=== PATIENT | female | born 1990 | race Caucasian/White ===

== ENCOUNTER → 2017-05-25 | Outpatient (CLI) | payer BC, OTHER ==
[~2017-05-25] MED LIST: MTR600X PO; PRENTAB26 PO
[2017-05-25 11:08] LABS: CHOLESTEROL/HDL RATIO 3.6
== END | disposition home or self-care (01) ==
LOC: C.LABBC 08:41
PROVIDERS: ATTEND Family Medicine
DX: Z00.00 Encounter for general adult medical examination without abnormal findings (principal)

== ENCOUNTER → 2017-06-07 | Outpatient (CLI) | payer OTHER ==
[2017-06-07 17:41] LABS: URINE APPEARANCE CLEAR (CLEAR); URINE BILIRUBIN NEG (NEG); URINE COLOR YELLOW; URINE NITRITE NEG (NEG); URINE PH 7.5 (4.5-7.5); URINE SPECIFIC GRAVITY 1.013 (1.000-1.030); UROBILINOGEN NEG (NEG)
[2017-06-07 17:42] LABS: MANUAL MICROSCOPIC REQUIRED? NO; REVIEW REQ? NO
== END | disposition home or self-care (01) ==
LOC: C.LABSPEC 14:35
PROVIDERS: ATTEND Family Medicine
DX: R30.0 Dysuria (principal)

== ENCOUNTER 2018-01-26 14:43 | Emergency (ER) | payer OTHER ==
[~2018-01-26] VITALS: Ht 172.7 cm; Wt 100.7 kg
[2018-01-26 14:49] VITALS: TEMP 36.9; O2SAT 98; Ht 172.7 cm; Wt 100.7 kg
[2018-01-26] MEDS ORDERED: ETON1IMP2 INTRAD (15:37)
[2018-01-26] MEDS ORDERED: SULF47LI PO (15:37)
[2018-01-26] MEDS ORDERED: MULT-513 PO (15:37)
[2018-01-26] MEDS ORDERED: MISCCAP80 PO (15:37)
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
[2018-01-26 16:21] VITALS: BP 120/80; PULSE 72
[2018-01-26] MEDS ORDERED: CYCL10TA6 PO (16:23)
== END 2018-01-26 16:54 | disposition home or self-care (01) ==
LOC: C.EDB 14:44 → C.EDD 16:54
DX: M54.9 Dorsalgia, unspecified (principal); M25.561 Pain in right knee; M25.562 Pain in left knee; S60.511A Abrasion of right hand, initial encounter; Z79.899 Other long term (current) drug therapy; Z97.8 Presence of other specified devices; V43.52XA Car driver injured in collision with other type car in traffic accident, initial encounter

== ENCOUNTER 2023-02-23 08:43 | Inpatient (IN) ==
[2023-02-23] MEDS ORDERED: OXYTOCIN 30 UNITS/500 ML BAG IV PRN ×2 (13:11→13:29)
[2023-02-23] MEDS ORDERED: LIDOCAINE 1% LOCAL 20 ML VIAL INFIL PRN (13:11)
[2023-02-23] MEDS: LACTATED RINGER'S 1,000 ML IV PRN ×3 (13:15→23:25)
[2023-02-23] MEDS ORDERED: ceFAZolin 2000MG 2,000 MG/15 ML SYR IV STA (13:17)
--- NOTE | 2023-02-23 13:28 | History & Physical Report ---
Date of Service February 23, 2023 Assessment & Plan (1) GBS (group B Streptococcus carrier), +RV culture, currently : (2) Encounter for supervision of normal in multigravida: (3) Term : Plan 32-year-old currently at 40 weeks 2 days gestational age presents for elective induction of labor. 1. Fetus: Cat 1 2. Labor: Pitocin. Will AROM when able 3. GBS positive - Ancef 4. Vitals: WNL Admission and Anticipated Discharge Date Admission Date: February 23, 2023 History of Present Illness Primary Care Provider: Frances Segura MD Ayah is a 32-year-old at 40 weeks 2 days gestational age presents for elective induction of labor. complicated by GBS positive. OB Labs: Blood Type O Positive 08/15/22 Antibody Screen NEGATIVE 08/15/22 Hemoglobin 11.5 g/dl (12.0-16.0) L 12/04/22 Hematocrit 32.8 % (37.0-47.0) L 12/04/22 Mean Corpuscular Volume 88.7 fL (80.0-100.0) 08/15/22 Platelet Count 241 K/uL (130-400) 08/15/22 Varicella-Zoster IgG Antibody 327.00 Index (>=165.00) 01/18/23 Rubella IgG Antibody Equivocal (Immune) L 08/15/22 Rapid Plasma Reagin Nonreactive (Nonreactive) 08/15/22 Hepatitis B Surface Antigen. NON-REACTIVE (NON-REACTIVE) 08/15/22 Hepatitis C Antibody (EIA) NON-REACTIVE (NON-REACTIVE) 08/15/22 HIV (1&2) Ag and Ab Confirmation NON-REACTIVE (NON-REACTIVE) 08/15/22 Glucose 1 Hour 50 gm Load 140 mg/dl (70-130) H 12/04/22 OB Optional Labs: Chlamydia trachomatis RNA Not Detected (NotDetected) 08/15/22 Neisseria gonorrhoeae RNA Not Detected (NotDetected) 08/15/22 Thyroid Stimulating Hormone (TSH) 2.210 uIU/mL (0.30-4.50) 01/25/22 Allergies Allergy/AdvReac Type Severity Reaction Status Date / Time Penicillins Allergy Unknown Hives Verified 02/22/23 10:47 Sulfa (Sulfonamide Allergy Unknown Hives Verified 02/22/23 10:47 Antibiotics) Home Medications Medication Instructions Recorded Confirmed Type adapalene 0.1 % lotion 1 applic topical HS 03/01/22 02/22/23 History prenat.vits,qamar,auy-ytts-evghz 1 tab PO DAILY 08/11/22 02/22/23 History Patient History Medical History Chlamydia Chronic midline thoracic back pain Chronic UTI (urinary tract infection) Frequent UTI History of COVID-19 HPV test positive Low HDL (under 40) Mass of urethra Migraine Nexplanon removal Obesity Tear of anterior cruciate ligament graft Surgical History H/O medial meniscus repair of left knee History of oral surgery History of repair of anterior cruciate ligament of left knee S/P Botox injection [place] teeth removed Family History Grandmother Cancer Denies family history of Ovarian cancer Prostate cancer Myocardial infarction Breast cancer Colorectal cancer Social History (Updated 01/09/23 @ 15:31 by Sheree Dodson LPN) Smoking Status: Former smoker Second Hand Exposure: No; Do You Dip or Chew Tobacco: No; Hx Alcohol Use: No Hx Substance Use: No Preferred Language: Wolof Communication Ability: Effective Visual Impairment: No Limitations Hearing Ability: Normal Sociology Research Assistant Required: No Beliefs That Will Affect Care: None marital status: marital status details: Clyde Higuera ([phone] Current Living Situation: Spouse and Family Current Living Situation Comment: lives with spouse, daughter, dog, cat-spouse changing litter current occupational status: employed current occupation: [employer] How many Children do You have: 1 Feels Safe at Home: Yes Childhood Exposure to Second-Hand Smoke: No caffeine: Yes during the past year weight has: increased > 10 lbs Dental Care, Regularly: Yes Physical Activity Frequency: Daily Seatbelt Use: always Sunscreen Use: Yes Assistive Devices: None Physical Exam Genitourinary: normal external appearance OB Exam Abdomen: + vertex Manual OB Exam: + cervical dilation 1 cm, + cervical effacement 50% and + statio n -2 OB Exam Monitor Tracing: + external FHT monitor used, + external uterine monitor used, + category I and + normal FHT variability; no early decelerations present, no late decelerations present and no variable decelerations Coding Level of Care Code None Diagnoses GBS (group B Streptococcus carrier), +RV culture, currently O99.820 Encounter for supervision of normal in multigravida Z34.80 Term Z34.90
[2023-02-23 13:54] LABS: Hematocrit (blood only) 34.4 % (37.0-47.0); Hemoglobin 11.8 g/dl (12.0-16.0); Mean Corpuscular Hemoglobin 30.9 pg (25.0-34.0); Mean Corpuscular Hgb Conc 34.3 g/dL (32.0-36.0); Mean Corpuscular Volume 90.1 fL (80.0-100.0); Mean Platelet Volume 8.9 fL (9.4-12.4); Platelet Count 227 K/uL (130-400); RDW Coefficient of Variation 13.3 % (11.5-14.5); RDW Standard Deviation 43.3 fL (36.4-46.3); Red Blood Count 3.82 M/uL (4.20-5.40); White Blood Count 7.45 K/ul (4.8-10.8)
[2023-02-23] MEDS ORDERED: SODIUM CHLORIDE 0.9% PF INJ 10 ML VIAL ONE (19:46)
[2023-02-23] MEDS ORDERED: fentaNYL citrate PF 100 MCG/2 ML VIAL ONE (19:46)
[2023-02-23] MEDS ORDERED: ePHEDrine sulfate 50 MG/ML AMP ONE (19:46)
[2023-02-23] MEDS ORDERED: fentaNYL 2MCG/ML ROPIVACAINE 1.25MG/ML 100 ML BAG EPI ONE (19:47)
[2023-02-23] MEDS ORDERED: LIDOCAINE 2%/EPINEPHRINE 1:200,000 20 ML PF ONE (19:47)
[2023-02-23] MEDS ORDERED: BUPIVACAINE 0.25% PF 30 ML VIAL ONE (19:47)
--- NOTE | 2023-02-23 19:50 | Anesthesiology Consultation ---
Date of Service February 23, 2023 Assessment & Plan ASA ASA2 Proposed Anesthesia Anesthesia Type: Labor Epidural Risk / Benefits Reviewed With: PT / POA / Parent / Guardian, Accepts Plan and Informed Consent Obtained History Height/Weight Height: 5 ft 8 in Weight: 115.212 kg Allergies Allergy/AdvReac Type Severity Reaction Status Date / Time Penicillins Allergy Unknown Hives Verified 02/22/23 10:47 Sulfa (Sulfonamide Allergy Unknown Hives Verified 02/22/23 10:47 Antibiotics) Medications Home Medications Medication Instructions Recorded Confirmed Last Taken adapalene 0.1 % lotion 1 applic topical HS 03/01/22 02/22/23 Unknown prenat.vits,qamar,nsy-motp-mtwiz 1 tab PO DAILY 08/11/22 02/22/23 Unknown Active Medications Generic Name Dose Route Start Last Admin Trade Name Freq PRN Reason Stop Dose Admin Lactated Ringer's 1,000 mls @ 125 mls/hr 02/23/23 13:11 02/23/23 20:17 Lr IV 02/25/23 13:10 125 mls/hr .Q8H PRN Infusion L&D Protocol Protocol Oxytocin 30 units in 500 mls @ 4 mls/hr 02/23/23 13:29 02/23/23 15:15 Pitocin IV 02/25/23 13:28 0.24 units/hr .Q24H PRN 4 mls/hr Labor Induction/Augmentation Titration Protocol 0.24 UNITS/HR Past Medical History Medical History Chlamydia Chronic midline thoracic back pain Chronic UTI (urinary tract infection) Frequent UTI History of COVID-19 10/29/21 N/V/D, SOB, FEVER; NO HOSPITALIZATION 02/09/22 NO SYMPTOMS; INCIDENTAL FINDING HPV test positive Low HDL (under 40) Mass of urethra Migraine Nexplanon removal Obesity Tear of anterior cruciate ligament graft Exercise / Class Metabolic Activity II 4-5 Yardwork/Stairs/Walk up hill Past Family History Family History Grandmother Cancer Denies family history of Ovarian cancer Prostate cancer Myocardial infarction Breast cancer Colorectal cancer Past Surgical History Surgical History H/O medial meniscus repair of left knee 06/2020 History of oral surgery FRONT TOOTH KNOCKED OUT History of repair of anterior cruciate ligament of left knee 10/2018 S/P Botox injection [place] teeth removed Past Anesthesia History No Hx of Anesthesia Complications and No Family Hx of Anesthesia Complications History of PONV No Hx of PONV and No Hx of Motion Sickness Social History Smoking Status: Never smoker Do You Dip or Chew Tobacco: No Hx Alcohol Use: No Alcohol type: beer, wine and hard liquor alcohol intake frequency: holidays/special occasions only Hx Substance Use: No Review of Systems denies fever/cough/ colds/ chest pain/ SOB/ MARKY denies MARKY Physical Exam Vital Signs Last Vital Signs Temp 36.6 C 02/23/23 19:05 Pulse 61 02/23/23 19:19 Resp 18 02/23/23 19:05 BP 145/77 H 02/23/23 19:19 ENMT Mouth: no TMJ abnormality and no dentition abnormality Thyromental Distance: > or= 3.5 Finger Breadths Mallampati Class: II Neck neck extension not limited Respiratory normal respiratory effort; no respiratory distress Auscultation: lungs clear to auscultation bilaterally Cardiovascular Rate/Rhythm: regular rate and regular rhythm Neurologic moves all extremities Psychiatric Orientation: alert and oriented x 3 Testing Laboratory Results 02/23/23 13:22 Blood Type O Positive 02/23/23 13:22 Antibody Screen NEGATIVE 02/23/23 13:22
[2023-02-23] MEDS ORDERED: NALOXONE HCL 1 MG in SODIUM CHLORIDE 0.9% 1000ML 1,000 ML IV PRN (19:52)
[2023-02-23] MEDS ORDERED: ePHEDrine sulfate 50 MG/ML AMP IV PRN (19:52)
[2023-02-23] MEDS ORDERED: ONDANSETRON INJ 2 MG/ML 2 ML VIAL IV PRN (19:52)
[2023-02-23] MEDS ORDERED: fentaNYL 2MCG/ML ROPIVACAINE 1.25MG/ML 100 ML BAG EPI PRN (19:52)
[2023-02-23] MEDS ORDERED: NALBUPHINE HCL INJ 10 MG/ML AMP IV PRN (19:52)
[2023-02-23] MEDS ORDERED: NALOXONE HCL 0.4 MG/1 ML VIAL/CARP IV PRN (19:52)
[2023-02-23] MEDS ORDERED: diphenhydrAMINE 50 MG/ML VIAL IV PRN (19:52)
[2023-02-23] MEDS ORDERED: ceFAZolin 1000MG 1,000 MG/7.5 ML SYR IV PRN (20:11)
--- NOTE | 2023-02-23 22:31 | Labor Progress Brief Note ---
Date of Service February 23, 2023 Subjective Reason For Note: Routine Evaluation Assessment & Plan (1) GBS (group B Streptococcus carrier), +RV culture, currently : (2) Encounter for supervision of normal in multigravida: (3) Term : Plan 32-year-old currently at 40 weeks 2 days gestational age presents for elective induction of labor. 1. Fetus: Cat 1 2. Labor: Pitocin. SROM. modest change since last check. IUPC /FSE placed 3. GBS positive - Ancef 4. Vitals: WNL Admission and Anticipated Discharge Date Admission Date: February 23, 2023 Physical Exam Genitourinary: Manual OB Exam: + cervical dilation 3 cm, + cervical effacement 50%, + station -2 and + amniotic fluid meconium OB Exam Monitor Tracing: + external FHT monitor used, + external uterine monitor used, + category I and + normal FHT variability; no early decelerations present, no late decelerations present and no variable decelerations Results & Data Vital Signs (Past 12 Hours) Vital Signs Temp Pulse Resp BP Pulse Ox 02/23/23 19:05 36.6 C 18 02/23/23 22:26 107 H 98 02/23/23 22:24 78 91 02/23/23 22:21 81 100 02/23/23 22:16 82 92 02/23/23 22:11 87 117/75 97 02/23/23 22:06 96 H 98 02/23/23 22:01 79 98 02/23/23 21:56 65 118/65 96 02/23/23 21:51 62 96 02/23/23 21:46 62 97 02/23/23 21:41 70 118/66 97 02/23/23 21:36 60 97 02/23/23 21:31 67 95 02/23/23 21:26 63 122/67 99 02/23/23 21:21 67 95 02/23/23 21:16 61 99 02/23/23 21:11 74 100 02/23/23 21:09 72 118/64 02/23/23 21:00 16 02/23/23 21:00 36.7 C 16 02/23/23 21:06 66 99 02/23/23 21:03 81 114/62 02/23/23 21:01 76 99 02/23/23 20:58 93 H 114/62 02/23/23 20:56 70 99 02/23/23 20:54 80 114/60 02/23/23 20:51 68 99 02/23/23 20:49 73 127/65 02/23/23 20:46 66 98 02/23/23 20:43 87 129/74 02/23/23 20:41 88 99 02/23/23 20:37 108 H 105/64 02/23/23 20:36 102 H 99 02/23/23 20:35 107 H 115/65 02/23/23 20:33 96 H 111/57 L 02/23/23 20:31 103 H 127/63 99 02/23/23 20:29 95 H 125/66 02/23/23 20:26 104 H 99 02/23/23 20:27 107 H 127/71 02/23/23 20:25 103 H 122/74 02/23/23 20:23 93 H 133/73 02/23/23 20:21 100 02/23/23 20:21 77 02/23/23 20:21 82 146/70 H 02/23/23 20:19 77 130/65 02/23/23 20:16 98 H 100 02/23/23 20:17 91 H 130/64 02/23/23 20:15 75 135/65 02/23/23 20:13 67 137/68 02/23/23 20:11 71 139/76 100 02/23/23 20:10 80 89 L 02/23/23 20:08 76 147/90 H 02/23/23 20:06 85 98 02/23/23 20:01 84 100 02/23/23 19:19 61 145/77 H 02/23/23 19:09 63 186/90 H 02/23/23 18:07 36.8 C 63 137/82 02/23/23 16:11 64 120/74 02/23/23 14:12 19 02/23/23 14:12 36.7 C 19 02/23/23 14:11 73 139/83 Coding Level of Care Code None Diagnoses GBS (group B Streptococcus carrier), +RV culture, currently O99.820 Encounter for supervision of normal in multigravida Z34.80 Term Z34.90
[2023-02-23] MEDS ORDERED: FAMOTIDINE 20 MG in SYRINGE 3 ML IV ONE (23:00)
[2023-02-24] MEDS ORDERED: HYDROCORTISONE ACETATE 25 MG SUPP PR PRN ×2 (01:43→04:15)
[2023-02-24] MEDS ORDERED: OXYTOCIN 30 UNITS/500 ML BAG IV PRN ×2 (01:43→04:15)
[2023-02-24] MEDS ORDERED: ACETAMINOPHEN 325 MG TAB PO PRN ×2 (01:43→04:15)
[2023-02-24] MEDS ORDERED: DIPHTHERIA/TETANUS/PERTUSSIS 0.5mL SYR/VIAL (Age 7+yrs) IM ONE (01:43)
[2023-02-24] MEDS ORDERED: BENZOCAINE 20% AER SPR 82.5 GM CAN EXT PRN ×2 (01:43→04:15)
--- NOTE | 2023-02-24 02:26 | Anesthesia Procedure Note ---
Date of Service February 24, 2023 Anesthesia Post Epidural Note Vital Signs Vital Signs: Temp Pulse Resp BP Pulse Ox 36.6 C 78 16 156/73 H 96 02/24/23 01:00 02/24/23 02:11 02/24/23 02:10 02/24/23 02:11 02/24/23 02:06 Pain Intensity Bilateral Abdomen: Pain Intensity: 2 Notes Mental Status: alert / awake / arousable and participated in evaluation Nausea / Vomiting: adequately controlled Pain: adequately controlled Airway Patency, RR, SpO2: stable & adequate BP & HR: stable & adequate Hydration State: stable & adequate Neuraxial Anesthesia: was administered and sensory block is resolving Anesthetic Complications: no major complications apparent and Pt Satisfied with anesthetic care Epidural: Removed without complications and With tip intact
[2023-02-24] MEDS: IBUPROFEN 600 MG TAB PO PRN ×3 (03:18→20:49)
[2023-02-24] MEDS ORDERED: IBUPROFEN 600 MG TAB PO PRN (04:15)
[2023-02-24] MEDS ORDERED: bisacodyL 10 MG SUPP PR PRN (04:15)
[2023-02-24] MEDS ORDERED: PRENATAL VITAMIN 1 TAB PO SCH (08:00)
[2023-02-24] MEDS ORDERED: DOCUSATE SODIUM 100 MG CAP PO SCH (08:00)
--- NOTE | 2023-02-24 08:34 | Delivery Summary ---
DATE OF SERVICE: 02/24/2023. PROCEDURE: Normal spontaneous vaginal delivery with right labial and small second-degree perineal la ceration repair. SURGEON: Timur Cano MD. PREOPERATIVE DIAGNOSES: 1. Single intrauterine at 40 weeks 3 days gestational age. 2. GBS positive. POSTOPERATIVE DIAGNOSES: 1. Single intrauterine at 40 weeks 3 days gestational age. 2. GBS positive. 3. Status post procedure. ESTIMATED BLOOD LOSS: 300 mL DRAINS: Straight cath at the completion of the case. URINE OUTPUT: Approximately 200 mL via straight cath. COMPLICATIONS: None. FINDINGS: Viable female with weight of 7 pounds 12 ounces and Apgars of 8 and 9 at one and f evonne minutes respectively. DESCRIPTION OF PROCEDURE: The patient progressed to 10 cm dilated, 100% effaced, positive 2 station, pushed over intact perineum with epidural anesthesia and delivered a viable female with weig ht and Apgars as noted above. Head of the delivered in JAIMIE position, restituted to left seay sverse. No nuchal cord was noted. Body and shoulders quickly followed. was noted to be vig orous soon after delivery and 1 minute delayed cord clamping was initiated. Cord was then double cla mped and cut. remained on maternal abdomen. Cord blood was obtained. Attention was then tu rned to delivery of placenta, which was delivered intact, 3-vessel cord, gentle cord traction. On in spection of perineum, vagina, cervix, there was noted to be a small second-degree perineal laceration , which was repaired with traditional crown stitch and a small right labial laceration was repaired w ith interrupted stitch. Needle, sponge, and instrument counts were correct at the completion of the case. Both mother and are stable in the immediate post-delivery period. Job ID: [id number]
[2023-02-24] MEDS: FERROUS SULFATE 325 MG TAB PO SCH (09:37)
[2023-02-24] MEDS: DOCUSATE SODIUM 100 MG CAP PO SCH ×2 (09:37→20:49)
[2023-02-24] MEDS: PRENATAL VITAMIN 1 TAB PO SCH (09:37)
[2023-02-24] MEDS ORDERED: MEASLES, MUMPS & RUBELLA VIRUS VIAL SQ ONE (10:03)
[2023-02-24] MEDS: FAMOTIDINE 20 MG in SYRINGE 3 ML IV SCH ×3 (19:41→23:02)
[2023-02-25] MEDS ORDERED: bisacodyL 10 MG SUPP PR PRN (01:43)
[2023-02-25 06:47] LABS: Hematocrit (blood only) 29.1 % (37.0-47.0); Hemoglobin 9.7 g/dl (12.0-16.0); Mean Corpuscular Hemoglobin 30.5 pg (25.0-34.0); Mean Corpuscular Hgb Conc 33.3 g/dL (32.0-36.0); Mean Corpuscular Volume 91.5 fL (80.0-100.0); Platelet Count 173 K/uL (130-400); RDW Coefficient of Variation 13.2 % (11.5-14.5); RDW Standard Deviation 43.8 fL (36.4-46.3); Red Blood Count 3.18 M/uL (4.20-5.40); White Blood Count 8.26 K/ul (4.8-10.8)
[2023-02-25] MEDS: PRENATAL VITAMIN 1 TAB PO SCH (08:55)
[2023-02-25] MEDS: IBUPROFEN 600 MG TAB PO PRN (08:55)
[2023-02-25] MEDS: FERROUS SULFATE 325 MG TAB PO SCH (08:55)
[2023-02-25] MEDS: DOCUSATE SODIUM 100 MG CAP PO SCH (08:55)
[2023-02-25] MEDS: FAMOTIDINE 20 MG in SYRINGE 3 ML IV SCH (10:05)
--- NOTE | 2023-02-25 10:14 | Obstetrical Progress Note ---
Date of Service February 25, 2023 Assessment & Plan (1) care and examination: Plan stable, ready for dc home, instructions reviewed. f/u 6 wk pp check. breast/rhp os/r equiv, mmr ordered. Day #:: 2 Subjective Ambulation: ambulating normally Voiding: no voiding problems Diet Tolerance:: regular diet Lochia:: Small Feeding Type:: breast feeding doing well. no complaints, ready to go home. Constitutional: + as per Subjective / HPI Physical Exam Constitutional WD/WN, vitals as above Respiratory normal respiratory effort, lungs clear to auscultation Cardiovascular Rate/Rhythm: regular rate and regular rhythm Gastrointestinal (Abdomen) Inspection/Auscultation: abdomen normal to inspection Percussion/Palpation: abdomen soft fundus firm 2 cm below umbilicus Musculoskeletal nt calves noedema Neurologic grossly normal Psychiatric A+Ox3, euthymic affect Results & Data Vital Signs (Past 12 Hours) Vital Signs Temp Pulse Resp BP Pulse Ox O2 Del Method 02/25/23 09:00 97.7 F 81 18 138/85 Room Air 02/24/23 23:07 98.4 F 73 18 141/89 H 97 Room Air
[2023-02-25] MEDS ORDERED: MEASLES, MUMPS & RUBELLA VIRUS VIAL SQ ONE ×2 (11:08→11:17)
[2023-02-25] MEDS ORDERED: bisacodyL 5 MG TABEC PO SCH ×2 (20:00)
== END 2023-02-25 13:15 | disposition home or self-care (01) | DRG 807 ==
LOC: 4S1 13:01 → 4E2 02-24 04:29